=== PATIENT | male | born 1975 | race Two or more races ===

== ENCOUNTER 2019-07-27 09:38 | Emergency (ER) | payer OTHER ==
[~2019-07-27] VITALS: Ht 172.7 cm; Wt 83.0 kg
[2019-07-27 09:43] VITALS: BP 155/83
== END 2019-07-27 12:01 | disposition home or self-care (01) ==
LOC: ER 09:39
DX: S01.81XA Laceration without foreign body of other part of head, initial encounter (principal); W22.8XXA Striking against or struck by other objects, initial encounter; Y93.89 Activity, other specified; Y92.89 Other specified places as the place of occurrence of the external cause; Y99.9 Unspecified external cause status
CPT/HCPCS: 12002; 99282